=== PATIENT | female | born 1960 | race Caucasian/White ===

== ENCOUNTER → 2023-08-25 15:05 | Outpatient (REF) | payer OTHER, SELFPAY | LOC: RAD 15:05 | PROVIDERS: ATTENDING PHYSICIAN Nurse Practitioner Family; FAMILY PHYSICIAN Internal Medicine Geriatric Medicine | DX: M54.50 Low back pain, unspecified (principal); M79.602 Pain in left arm | CPT/HCPCS: 72082; 73130 ==

== ENCOUNTER → 2024-01-13 14:56 | Outpatient (REF) | payer OTHER, SELFPAY | LOC: RAD 14:56 | PROVIDERS: ATTENDING PHYSICIAN Obstetrics & Gynecology; FAMILY PHYSICIAN Internal Medicine Geriatric Medicine | DX: R14.0 Abdominal distension (gaseous) (principal) | CPT/HCPCS: 76830; 76856 ==

== ENCOUNTER 2024-01-22 17:46 | Emergency (ER) | payer OTHER, SELFPAY ==
[2024-01-22 17:48] VITALS: BP 159/85
--- NOTE | 2024-01-22 18:21 | ED.GENMED ---
History of Present Illness
<Sommer Marti ARCHITECTURAL TECHNOLOGIST - Last Filed: 01/23/24 20:49>
General
Chief Complaint: Abdominal Symptoms
Source: patient
Exam Limitations: none
Time Seen by Provider: 01/22/24 18:02
Nursing documentation reviewed up to this point in time: agreed with
History of Present Illness
History of Present Illness:
63 yo female with hx of born with only R ovary, 'pressure pain,' 'gurgling' mid lower abdomen for past 3-4 days. Was up twice during the last night to urinate and had so much suprapubic pressure she had to hold her abdomen to urinate. Denies burning
pain. Did home UTI test she states was neg.
Denies fever/chills, denies n/v/d/c.
Diagnosed with 'mild case' of shingles 01/09 and finished 7 days Valcyclovir. Her pain at that time was L lower back, hip and anterior left thigh. Rash has subsided.
Prior to her shingles she felt 'bloating' lower abd, saw [facility] and had neg US.
Past History
<Sommer Marti ARCHITECTURAL TECHNOLOGIST - Last Filed: 01/23/24 20:49>
Past History
ED Past Medical History: None
ED Past Surgical History: Gynecological
Social History
Tobacco: Non-smoker
Alcohol: None
Drug: None
Personal:
Living: with family
Review of Systems
<Sommer Marti, ARCHITECTURAL TECHNOLOGIST - Last Filed: 01/23/24 20:49>
Review of Systems
Allergies reviewed?: Yes
All Other Systems: ROS reviewed and negative except as documented in HPI and ROS
Constitutional: Denies fever or chills
Respiratory: Denies trouble breathing
Cardiac: Denies chest pain
ABD/GI: Reports abdominal pain; Denies nausea, vomiting, diarrhea, constipated, bloody stools, black stools or anorexia
: Denies dysuria, frequency, flank pain, incontinence, difficulty voiding, urgency, bleeding, dark urine or discharge
Musculoskeletal: Reports no symptoms
Skin: Reports no symptoms
Neurological: Reports no symptoms
Hematologic/Lymphatic: Reports swollen glands (with shingles had swollen left groin nodes, states much improved)
Phy Exam
<Sommer Marti, ARCHITECTURAL TECHNOLOGIST - Last Filed: 01/23/24 20:49>
Physical Exam
Physical Exam:
GENERAL: No acute distress. A&Ox3.
CONSTITUTIONAL: Afebrile.
EYES: Clear , conjunctivae normal
ENMT: moist mucus membranes, Pharynx nl
RESPIRATORY: Regular respirations, nonlabored, lungs clear.
CARDIOVASCULAR: Regular rate and rhythm, no murmurs, no rubs.
GI: Soft, flat, nontender at this time, non distended, hyperactive BS
Lymph: one small palpable lymph node left groin. Non tender.
MUSCULOSKELETAL: Moves with ease. Well perfused.
SKIN: Warm, dry, pink, No rash in distribution of reported shingles, skin appears normal.
PSYCH: Normal mood and affect. Well kept, interactive and appropriate
NEUROLOGIC: Awake, alert and oriented. No focal neurological deficits
Course
<Sommer Marti, ARCHITECTURAL TECHNOLOGIST - Last Filed: 01/23/24 20:49>
Orders/Labs/Results
Orders:
Orders
01/22/24 18:21
Iohexol [Omnipaque] See Protocol PO NOW STA
01/22/24 18:22
CT Abd/pel W Iv And Oral Contr Urgent
Comment:
Reason For Exam: mid lower abdominal pain, pressure
0.9% Sodium Chloride 1000 ml [Nss] 1,000 ml IV BOLUS
01/22/24 18:32
Complete Blood Count/With Diff Urgent
Comprehensive Metabolic Panel Urgent
Lipase Urgent
TSH Urgent
Comment: ADDON
01/22/24 18:39
Add On- LAB Urgent
Tests Added?: TSH
01/22/24 19:14
Urinalysis Reflex To Culture Urgent
Date Specimen was Collected: 01/22/24
Time Specimen was Collected: 19:09
Abnormal Lab Results
01/22/24 01/22/24
18:32 19:14
RBC 4.17 L 10^6/uL
(4.20-5.40)
RDW 15.0 H %
(11.5-14.5)
BUN 18 H mg/dl
(7-17)
AST 38 H U/L
(14-36)
Urine Ketones 1+ A
(Negative)
01/22/24 18:32
01/22/24 18:32
Vital Signs
Initial and Last Documented VS:
Initial Vital Signs
Temp Pulse Resp BP Pulse Ox
98.1 F 63 18 159/85 100
01/22/24 17:48 01/22/24 17:48 01/22/24 17:48 01/22/24 17:48 01/22/24 17:48
Last Documented Vital Signs
Temp Pulse Resp BP Pulse Ox
98.1 F 82 18 101/82 100
01/22/24 17:48 01/22/24 21:46 01/22/24 21:46 01/22/24 21:46 01/22/24 21:46
<Lotus Garrett MD - Last Filed: 01/22/24 22:14>
Orders/Labs/Results
Orders:
Orders
01/22/24 18:21
Iohexol [Omnipaque] See Protocol PO NOW STA
01/22/24 18:22
CT Abd/pel W Iv And Oral Contr Urgent
Comment:
Reason For Exam: mid lower abdominal pain, pressure
0.9% Sodium Chloride 1000 ml [Nss] 1,000 ml IV BOLUS
01/22/24 18:32
Complete Blood Count/With Diff Urgent
Comprehensive Metabolic Panel Urgent
Lipase Urgent
TSH Urgent
Comment: ADDON
01/22/24 18:39
Add On- LAB Urgent
Tests Added?: TSH
01/22/24 19:14
Urinalysis Reflex To Culture Urgent
Date Specimen was Collected: 01/22/24
Time Specimen was Collected: 19:09
Abnormal Lab Results
01/22/24 01/22/24
18:32 19:14
RBC 4.17 L 10^6/uL
(4.20-5.40)
RDW 15.0 H %
(11.5-14.5)
BUN 18 H mg/dl
(7-17)
AST 38 H U/L
(14-36)
Urine Ketones 1+ A
(Negative)
01/22/24 18:32
01/22/24 18:32
Vital Signs
Initial and Last Documented VS:
Initial Vital Signs
Temp Pulse Resp BP Pulse Ox
98.1 F 63 18 159/85 100
01/22/24 17:48 01/22/24 17:48 01/22/24 17:48 01/22/24 17:48 01/22/24 17:48
Last Documented Vital Signs
Temp Pulse Resp BP Pulse Ox
98.1 F 82 18 101/82 100
01/22/24 17:48 01/22/24 21:46 01/22/24 21:46 01/22/24 21:46 01/22/24 21:46
P[place]it[place];Sommer Marti ARCHITECTURAL TECHNOLOGIST - Last Filed: 01/23/24 20:49>
MDM/Problems Addressed
Differential Diagnosis Includes:
post herpetic neuralgia, UTI, diverticulitis
MDM/Problems Addressed:
63 yo female with hx of born with only R ovary, 'pressure pain,' 'gurgling' mid lower abdomen for past 3-4 days. Was up twice during the last night to urinate and had so much suprapubic pressure she had to hold her abdomen to urinate. Denies burning
pain. Did home UTI test she states was neg.
Denies fever/chills, denies n/v/d/c.
Diagnosed with 'mild case' of shingles 01/09 and finished 7 days Valcyclovir. Her pain at that time was L lower back, hip and anterior left thigh. Rash has subsided.
Prior to her shingles she felt 'bloating' lower abd, saw [facility] and had neg US.
She has out pt lab orders from PCP with her we will do here.
Abdomen benign
7:30 p.m.
CBC normal
CMP normal
U/A neg
TSH normal
<Sommer Marti ARCHITECTURAL TECHNOLOGIST - Last Filed: 01/23/24 20:49>
*Critical Care Note
Total Time (30-74mins, 75-104mins- exclusive of procedures): Not Applicable
<Lotus Garrett MD - Last Filed: 01/22/24 22:14>
*Radiology
Radiology exam reviewed: radiology read reviewed
ED Attending Note
<Sommer Marti ARCHITECTURAL TECHNOLOGIST - Last Filed: 01/23/24 20:49>
-
Portions of this chart may have been created with voice recognition software.� Occasional wrong word or��sound alike� substitutions may have occurred due to the inherent limitations of voice recognition software.
<Lotus Garrett MD - Last Filed: 01/22/24 22:14>
ED Attending Note
Patient seen and examined by attending physician: Yes
I performed the substantive portion of visit, reviewed & personally made and approve the management plan that is documented in note by myself or JESÚS.: Yes
ED Attending Note:
The patient appears well and comfortable. She is mild lower abdominal tenderness on exam. She is breathing comfortably. She is smiling and conversational. Labs show no abnormality. Urine appears normal. CT shows no abnormal findings. Patient
encouraged to follow-up with her GI doctor
Discharge Plan
Departure
Patient Disposition: Home (Routine Discharge)
Date of Disposition: 01/22/24
Time of Disposition: 22:14
Patient with high blood pressure during this ER visit?: No
Condition: Good
Covid-19: Not Applicable
Discharge Problem:
Abdominal pain, lower
Instructions: Abdominal Pain
Prescriptions:
No Action
krill oil 500 MG capsule
1,000 mg PO DAILY
Adreno Plus
1 - 2 cap PO DAILY
B Complex 50mg
1 tab PO WEEKLY
ginkgo biloba [Ginkoba] 40 MG tablet
80 mg PO TID
docosahexaenoic acid-epa 1 CAP capsule
500 mg PO BID
L.acidoph, paracasei,B. lactis 1 EACH capsule
1 ea PO DAILY
sour blackmon extract [Tart Blackmon Extract] 1,000 MG capsule
1 - 2 cap PO DAILY
Biest 5mg/Ml Cream
1 applic topical DAILY
Biosil
100 mg PO BID
Bone Growth Factor Calcium
333 mg PO TID
Boswellia
500 mg PO DAILY
Curcuramin
750 mg PO DAILY
D3 Plus
5,000 mg PO BID
Estriol 2mg/Ml Versabas Cream
1 applic VAG TUFR
Health Pro C
500 mg PO TID
Iron Complex
520 mg PO DAILY
Magnesium Angel Luis
1 tab PO MONTHLY
Natural Progest Cream
2 applic topical HS
Unique E
400 mg PO DAILY
Referrals:
Seth Grimes MD [Family Provider] -
Activity Restrictions/Additional Instructions:
Please call and follow-up with your power distributor.
Interventions
Interventions:
*Risk Screen - Suicide Last Done: 01/22/24 18:50
*General Assessment Last Done: 01/22/24 17:48
*Neglect/Abuse Screening Last Done: 01/22/24 18:50
*Nursing Disposition Last Done: 01/22/24 22:33
MD-[id number]-[id number] Assessment Last Done: 01/22/24 18:50
Discharge Date and Time
Discharge Date/Time: 01/22/24 22:35
Print Language: [id number]
[2024-01-22] MEDS: OMNIPAQUE 50 ML PO (18:42)
[2024-01-22] MEDS: NSS 1000 IV (18:42)
[2024-01-22 18:43] VITALS: BMI 17.4
[2024-01-22 18:45] VITALS: BP 157/90
[2024-01-22 18:47] LABS: % Basophils 0.9 % (0-2); % Eosinophils 0.9 % (0-6); % Immature Granulocytes 0.2 % (0-0.5); % Lymphocytes 26.1 % (20.5-51.1); % Neutrophils 62.9 % (42.2-75.2); Absolute Basophils 0.1 10^3/uL (0-0.2); Absolute Eosinophils 0.1 10^3/uL (0-0.7); Absolute Lymphocytes 1.7 10^3/uL (1.2-3.4); Absolute Monocytes 0.6 10^3/uL (0.1-0.6); Absolute Neutrophils 4.1 10^3/uL (1.4-6.5); Hematocrit 37.8 % (37.0-47.0); Hemoglobin 12.8 g/dL (12.0-16.0); Mean Corp Hgb Conc. 33.9 g/dL (33.0-37.0); Mean Corpuscular Hgb 30.7 pg (27.0-31.0); Mean Corpuscular Volume 90.6 fL (81.0-99.0); Nucleated Red Blood Cells % 0 %; Platelet Count 261 10^3/uL (130-400); Red Blood Cell Count 4.17 10^6/uL (4.20-5.40); White Blood Cell Count 6.6 10^3/uL (4.8-10.8)
[2024-01-22 19:00] VITALS: BP 166/93
[2024-01-22 19:13] LABS: ALT (SGPT) 24 U/L (0-35); AST (SGOT) 38 U/L (14-36); Albumin 4.7 g/dl (3.5-5.0); Alkaline Phosphatase 45 U/L (38-126); Blood Urea Nitrogen 18 mg/dl (7-17); Calcium 9.7 mg/dl (8.4-10.2); Carbon Dioxide 28 mmol/L (22-30); Chloride 101 mmol/L (98-107); Estimated Creatinine Clearance 56 ml/min; Glucose 94 mg/dl (70-99); Lipase 228 U/L (23-300); Potassium 4.3 mmol/L (3.5-5.1); Sodium 139 mmol/L (135-145); Total Bilirubin 0.9 mg/dl (0.2-1.3); Total Protein 7.3 g/dl (6.3-8.2); eGFR > 60.00
[2024-01-22 19:24] LABS: Urine Albumin Negative (Neg - Trace); Urine Bilirubin Negative (Negative); Urine Character Clear (Clear); Urine Color Straw; Urine Glucose Negative (Negative); Urine Ketone 1+ (Negative); Urine Leukocyte Negative (Negative); Urine Nitrite Negative (Negative); Urine Occult Blood Negative (Negative); Urine Urobilinogen Negative (Neg - 1+)
[2024-01-22 19:43] LABS: TSH 1.28 uIU/ml (0.47-4.68)
[2024-01-22 20:24] VITALS: BP 133/81
[2024-01-22 21:46] VITALS: BP 101/82
== END 2024-01-22 22:35 | disposition home or self-care (01) ==
LOC: EMR 17:46
PROVIDERS: Registered Nurse; EMERGENCY PHYSICIAN Emergency Medicine; FAMILY PHYSICIAN Family Medicine
DX: R10.30 Lower abdominal pain, unspecified (principal); R14.0 Abdominal distension (gaseous); R35.0 Frequency of micturition; R59.0 Localized enlarged lymph nodes; B02.9 Zoster without complications; D50.9 Iron deficiency anemia, unspecified; Q50.01 Congenital absence of ovary, unilateral
CPT/HCPCS: 99285; 96360; 74177; 80053; 81003; 83690; 84443; 85025; Q9967

== ENCOUNTER → 2024-05-26 14:55 | Outpatient (REF) | payer OTHER, SELFPAY | LOC: WDC 14:55 | PROVIDERS: ATTENDING PHYSICIAN Surgery; FAMILY PHYSICIAN Internal Medicine Geriatric Medicine | DX: N64.52 Nipple discharge (principal); N64.4 Mastodynia | CPT/HCPCS: 76642 ==

== ENCOUNTER → 2024-07-14 16:11 | Outpatient (REF) | payer OTHER, SELFPAY | LOC: MRI 3T 16:11 | PROVIDERS: ATTENDING PHYSICIAN Surgery; FAMILY PHYSICIAN Internal Medicine Geriatric Medicine | DX: N64.52 Nipple discharge (principal) | CPT/HCPCS: 77049; A9585 ==

== ENCOUNTER → 2024-08-21 14:54 | Outpatient (REF) | payer OTHER, SELFPAY | LOC: RAD 14:54 | PROVIDERS: ATTENDING PHYSICIAN Nurse Practitioner Primary Care | DX: I51.7 Cardiomegaly (principal); J90 Pleural effusion, not elsewhere classified; R92.8 Other abnormal and inconclusive findings on diagnostic imaging of breast | CPT/HCPCS: 71046; 93005 ==

== ENCOUNTER → 2024-08-24 14:40 | Outpatient (REF) | payer OTHER, SELFPAY | LOC: RCS 14:40 | PROVIDERS: ATTENDING PHYSICIAN Nurse Practitioner Primary Care | DX: I51.7 Cardiomegaly (principal); J90 Pleural effusion, not elsewhere classified; R92.8 Other abnormal and inconclusive findings on diagnostic imaging of breast | CPT/HCPCS: 93306 ==

== ENCOUNTER → 2024-10-26 14:49 | Outpatient (REF) | payer OTHER, SELFPAY | LOC: WDC 14:49 | PROVIDERS: ATTENDING PHYSICIAN Surgery; FAMILY PHYSICIAN Internal Medicine Geriatric Medicine | DX: R92.8 Other abnormal and inconclusive findings on diagnostic imaging of breast (principal) | CPT/HCPCS: 76642 ==

== ENCOUNTER → 2025-03-27 19:16 | Outpatient (REF) | payer OTHER, SELFPAY | LOC: MRI 3T 19:16 | PROVIDERS: ATTENDING PHYSICIAN Surgery; FAMILY PHYSICIAN Internal Medicine Geriatric Medicine | DX: R92.8 Other abnormal and inconclusive findings on diagnostic imaging of breast (principal) | CPT/HCPCS: 77049; A9585 ==

== ENCOUNTER → 2025-04-26 14:51 | Outpatient (REF) | payer OTHER, SELFPAY | LOC: WDC 14:51 | PROVIDERS: ATTENDING PHYSICIAN Surgery; FAMILY PHYSICIAN Nurse Practitioner Primary Care | DX: R92.8 Other abnormal and inconclusive findings on diagnostic imaging of breast (principal) | CPT/HCPCS: 76642 ==